=== PATIENT | male | born 1985 | race Caucasian/White ===

== ENCOUNTER 2019-03-01 15:34 | Emergency (ER) | payer OTHER ==
[~2019-03-01] VITALS: Ht 165.1 cm; Wt 104.3 kg
[2019-03-01 15:37] VITALS: BP 120/95
--- NOTE | 2019-03-01 15:44 | NUR ---
PT AMB TO BED 4.
--- NOTE | 2019-03-01 15:50 | NUR ---
33M C/O CONTINUOUS, "SMOTHERING" MID CHEST PAIN NON RADIATING , NAUSEA X 15-20 MINS. STARTED WHILE PATIENT WAS AT [employer], NOT DOING ANYTHING STRENUOUS. PAIN 2/10. DENIES TRAUMA. CP ASSOCIATED WITH DIZZINESS, SOB, DIAPHORESIS, NAUSEA. DENIES VOMITING. TOOK MIDOL TO NO RELIEF. MED HX: GERD RX: OMEPRAZOLE, SPIRONOLACTONE, ESTRADIOL
--- NOTE | 2019-03-01 15:54 | NUR ---
DR LIVINGSTON AT BEDSIDE
[2019-03-01] MEDS ORDERED: KETOROLAC 30 MG/ML VIAL IVP ONE (15:55)
[2019-03-01] MEDS ORDERED: ONDANSETRON 4 MG/2 ML VIAL IVP ONE (15:55)
[2019-03-01] MEDS ORDERED: NACL 0.9% 1,000 ML IV ONE (15:55)
--- NOTE | 2019-03-01 16:00 | NUR ---
neurophysiological technician at bedside for blood draw.
[2019-03-01 16:27] LABS: BASOPHILS % (AUTO) 0.3 % (0.0-2.0); EOSINOPHILS # (AUTO) 0.2 K/uL (0-0.4); EOSINOPHILS % (AUTO) 1.8 % (0.0-4.0); HEMATOCRIT 40.7 % (36-52); HEMOGLOBIN 13.9 g/dL (12.0-18.0); LYMPHOCYTES # (AUTO) 3.7 K/uL (2.0-11.5); LYMPHOCYTES % (AUTO) 29.1 % (20.5-51.1); MEAN CORPUSCULAR HEMOGLOBIN 30 pg (27-31); MEAN CORPUSCULAR HGB CONC 34 g/dL (33-37); MEAN CORPUSCULAR VOLUME 87.3 fL (80-94); MONOCYTES # (AUTO) 0.9 K/uL (0.8-1.0); MONOCYTES % (AUTO) 6.9 % (1.7-9.3); NEUTROPHILS % (AUTO) 61.9 % (42.2-75.2); PLATELET COUNT (AUTO) 355 K/uL (140-450); RED BLOOD CELL COUNT(AUTO) 4.66 MIL/uL (4.20-6.10); RED CELL DISTRIBUTION WIDTH 12.6 % (11.6-13.7); WHITE BLOOD COUNT (AUTO) 12.9 K/uL (4.8-10.8)
[2019-03-01 16:35] LABS: ANION GAP 11.6 (8-16); CARBON DIOXIDE 27.3 mmol/L (21-32); CREATININE 0.9 mg/dL (0.7-1.3); POTASSIUM 3.9 mmol/L (3.5-5.1)
--- NOTE | 2019-03-01 16:44 | NUR ---
Patient denies nausea at this time. States pain is "a lot less", rated "1 or 2 out of 10" at this time.
[2019-03-01 16:50] LABS: ALBUMIN 3.7 g/dL (3.4-5.0); FREE T4 (FREE THYROXINE) 0.89 ng/dL (0.76-1.46); THYROID STIMULATING HORMONE 1.78 uIU/mL (0.34-3.74); TOTAL BILIRUBIN 0.2 mg/dL (0.0-1.0)
[2019-03-01 16:55] LABS: APPEARANCE,URINE CLEAR (CLEAR); BILIRUBIN,URINE NEGATIVE (NEGATIVE); BLOOD, URINE 1+ (NEGATIVE); COLOR,URINE YELLOW (YELLOW); LEUKOCYTE ESTERASE ,URINE NEGATIVE (NEGATIVE); NITRITE, URINE NEGATIVE (NEGATIVE); UGLUCOSE NEGATIVE (NEGATIVE)
[2019-03-01 17:13] LABS: RBC,URINE 0-5 /HPF (0-5); WBC,URINE 0 /HPF (0-5)
--- NOTE | 2019-03-01 17:33 | NUR ---
Patient discharged with v/s stable. Written and verbal after care instructions given and explained. Patient verbalized understanding. Ambulatory with steady gait. All questions addressed prior to discharge. Advised to follow up with PMD.
[2019-03-01 17:34] VITALS: BP 120/58
== END 2019-03-01 17:33 | disposition home or self-care (01) ==
LOC: MED 15:34
DX: F41.9 Anxiety disorder, unspecified (principal); R42 Dizziness and giddiness
CPT/HCPCS: 36415; 71045; 80053; 81001; 84439; 84443; 85025; 96361; 96374; 96375; 99284; J1885; J2405; J7030; Q0092

== ENCOUNTER 2019-12-03 07:22 | Emergency (ER) | payer OTHER, SELFPAY ==
[~2019-12-03] VITALS: Ht 177.8 cm; Wt 99.8 kg
[2019-12-03 07:25] VITALS: BP 147/99
[2019-12-03 08:39] VITALS: BP 131/78
== END 2019-12-03 08:39 | disposition home or self-care (01) ==
LOC: MED 07:22 → EEVIPCON 07:22 → MED 08:39
DX: R07.9 Chest pain, unspecified (principal); R09.81 Nasal congestion; R03.0 Elevated blood-pressure reading, without diagnosis of hypertension; K21.9 Gastro-esophageal reflux disease without esophagitis
CPT/HCPCS: 71045; 93005; 99283; Q0092; 99284

== ENCOUNTER 2020-06-06 00:24 | Emergency (ER) | payer OTHER, SELFPAY ==
[~2020-06-06] VITALS: Ht 165.1 cm; Wt 118.4 kg
[2020-06-06 00:28] VITALS: BP 115/97
[2020-06-06] MEDS ORDERED: ACETAMINOPHEN EXTRA STRENGTH 500 MG TAB PO ONE (01:05)
--- NOTE | 2020-06-06 01:20 | NUR ---
PT TAKEN TO XRAY VIA W/C.
--- NOTE | 2020-06-06 01:30 | NUR ---
PT TAKEN TO BED 7
--- NOTE | 2020-06-06 01:35 | NUR ---
PT 34 Y/O MALE BIBA FOR C/O PERERA S/P HITTING HEAD ON WALL X 1 HOUR AGO. PT STATES,"I GOT FRUSTRATED AFTER PLAYING A VIDEO GAME AND I BANGED MY HEAD ON THE WALL." PT DENIES LOC, DENIES DIZZYNESS OR BLURRED VISION. BRUISE NOTED ON FRONTAL LOBE. PT NO CUT OR DRAINAGE NOTED/ PERRLA 3MM BRISK, BILAT. PT DENIES N/V. VSS. BED LOCKED AND IN LOWEST POSITION. MEDHX: CARO GUARDADO
[2020-06-06 02:00] VITALS: BP 122/88
--- NOTE | 2020-06-06 02:00 | NUR ---
Patient discharged with v/s stable. Written and verbal after care instructions given and explained. Patient alert, oriented and verbalized understanding of instructions. Ambulatory with steady gait. All questions addressed prior to discharge. ID band removed. Patient advised to follow up with PMD. Rx of ACETOMINOPHEN given. Patient educated on indication of medication including possible reaction and side effects. Opportunity to ask questions provided and answered.
== END 2020-06-06 02:00 | disposition home or self-care (01) ==
LOC: MED 00:24
DX: S00.83XA Contusion of other part of head, initial encounter (principal); S60.221A Contusion of right hand, initial encounter; K21.9 Gastro-esophageal reflux disease without esophagitis; W22.8XXA Striking against or struck by other objects, initial encounter; Y93.89 Activity, other specified; Y92.89 Other specified places as the place of occurrence of the external cause; Y99.8 Other external cause status
CPT/HCPCS: 73130; 99283

== ENCOUNTER 2020-09-30 18:16 | Emergency (ER) | payer OTHER, SELFPAY ==
[~2020-09-30] VITALS: Ht 165.1 cm; Wt 108.9 kg
[2020-09-30 18:22] VITALS: BP 110/72
--- NOTE | 2020-09-30 18:25 | NUR ---
Pt ambulated to ER bed 10 with a steady gait.
--- NOTE | 2020-09-30 18:30 | NUR ---
35 Y/O MALE C/O MID CHEST PAIN X 2 HOURS RADIATING TO EPIGASTRIC DESCRIBES TIGHTNESS INTERMITTENT. PT DENIES N/V, DENIES FEVER/CHILLS. PMH: GERD, FATTY LIVER RX: OMEPRAZOLE 20MG PO DAILY NKA
--- NOTE | 2020-09-30 19:02 | NUR ---
Dr. Card at pt bedside for further evaluation.
[2020-09-30] MEDS ORDERED: KETOROLAC 60 MG/2 ML VIAL IM ONE (19:05)
[2020-09-30] MEDS ORDERED: ACET-8386 PO (19:22)
[2020-09-30] MEDS ORDERED: IBUP-2213 PO (19:22)
--- NOTE | 2020-09-30 19:23 | NUR ---
Gave report to TAHMINA Larsen, transfer of care at this time.
--- NOTE | 2020-09-30 19:24 | NUR ---
RECEIVED REPORT FROM UMAIR MARTEL FOR CONTINUITY OF CARE.
--- NOTE | 2020-09-30 20:40 | NUR ---
PT RESTING IN BED IN NO ACUTE DISTRESS NOTED BREATHING EVEN AND UNLABORED. NO C/O PAIN OR DISCOMFORT AT THIS TIME.
[2020-09-30 21:05] VITALS: BP 110/72
--- NOTE | 2020-09-30 21:28 | NUR ---
Patient discharged with v/s stable. Written and verbal after care instructions given and explained BY JADE ACUÑA. Patient alert, oriented and verbalized understanding of instructions. Ambulatory with steady gait. All questions addressed prior to discharge BY JADE ACUÑA. ID band removed. Patient advised to follow up with PMD. Rx of NORCO given. Patient educated on indication of medication including possible reaction and side effects. Opportunity to ask questions provided and answered.
== END 2020-09-30 21:28 | disposition home or self-care (01) ==
LOC: MED 18:16
DX: R07.9 Chest pain, unspecified (principal); R05 Cough; R06.02 Shortness of breath; K21.9 Gastro-esophageal reflux disease without esophagitis
CPT/HCPCS: 93005; 96372; 99283; J1885

== ENCOUNTER 2022-08-18 16:58 | Emergency (ER) | payer OTHER ==
[~2022-08-18] VITALS: Ht 165.1 cm; Wt 113.9 kg
[~2022-08-18 16:58] MED LIST: ACET-8905 PO; IBUP-2213 PO
[2022-08-18 17:10] VITALS: BP 149/90
[2022-08-18] MEDS ORDERED: MECLIZINE 25 MG TAB PO ONE (19:30)
--- NOTE | 2022-08-18 19:35 | NUR ---
37/M C/O DIZZINESS X4 DAYS, ALSO C/O EPISODES OF SOB. DENIES HEADACHE OR VISION CHANGES, NUMBNESS, TINGLING. PMH: DENIES NKDA
--- NOTE | 2022-08-18 19:35 | NUR ---
PT TO BED 12
[2022-08-18 20:17] LABS: BASOPHILS # (AUTO) 0.1 K/uL (0.00-0.22); BASOPHILS % (AUTO) 0.4 % (0.0-2.0); EOSINOPHILS # (AUTO) 0.1 K/uL (0-0.4); HEMATOCRIT 41.7 % (36-52); HEMOGLOBIN 14.4 g/dL (12.0-18.0); LYMPHOCYTES # (AUTO) 3.7 K/uL (2.0-11.5); LYMPHOCYTES % (AUTO) 24.2 % (20.5-51.1); MEAN CORPUSCULAR HEMOGLOBIN 30 pg (27-31); MEAN CORPUSCULAR HGB CONC 34 g/dL (33-37); MEAN CORPUSCULAR VOLUME 85.9 fL (80-94); MONOCYTES # (AUTO) 0.8 K/uL (0.8-1.0); MONOCYTES % (AUTO) 5.5 % (1.7-9.3); NEUTROPHILS # (AUTO) 10.6 K/uL (1.8-7.7); NEUTROPHILS % (AUTO) 68.9 % (42.2-75.2); PLATELET COUNT (AUTO) 402 K/uL (140-450); RED BLOOD CELL COUNT(AUTO) 4.85 MIL/uL (4.20-6.10); RED CELL DISTRIBUTION WIDTH 12.7 % (11.6-13.7); WHITE BLOOD COUNT (AUTO) 15.3 K/uL (4.8-10.8)
[2022-08-18 20:35] LABS: ALBUMIN 4.1 g/dL (3.4-5.0); ANION GAP 12.8 (8-16); ASPARTATE AMINOTRANSFERASE 24 U/L (15-37); CARBON DIOXIDE 25.7 mmol/L (21-32); CHLORIDE 102 mmol/L (98-107); CREATININE 0.9 mg/dL (0.6-1.3); GFR ARICAN-AMERICAN 123 mL/min (>90); GLUCOSE 96 mg/dL (74-106); POTASSIUM 3.5 mmol/L (3.5-5.1); SODIUM SERUM 137 mmol/L (136-145); TOTAL BILIRUBIN 0.4 mg/dL (0.0-1.0); UREA NITROGEN, BLOOD 15 mg/dL (7-18)
--- NOTE | 2022-08-18 21:15 | NUR ---
TO CT VIA W/C
--- NOTE | 2022-08-18 22:12 | NUR ---
KAMI SWAB OBTAINED AND SENT TO LAB
--- NOTE | 2022-08-18 22:50 | NUR ---
BELONGINGS LIST COMPLETED
[2022-08-18] MEDS ORDERED: ASPIRIN 325 MG TAB PO ONE (23:05)
--- NOTE | 2022-08-19 03:20 | NUR ---
CALLED [facility] AND REPORT GIVEN TO TAHMINA KELLEY.
--- NOTE | 2022-08-19 03:25 | NUR ---
[facility] AT BEDSIDE FOR TRANSPORT
--- NOTE | 2022-08-19 03:30 | NUR ---
Patient to be transferred to [facility]. Is being transferred due to INSURANCE REQUEST. Receiving facility has accepting physician and available space. ER physician has signed transfer form. Patient or responsible green party has agreed to transfer and signed form. Patient belongings inventoried and will be sent with patient. Copy of nursing notes, lab reports, EKG, Physicians Orders and X-rays to be sent with patient. Report called to TAHMINA KELLEY at receiving facility.
[2022-08-19 03:31] VITALS: BP 128/82
== END 2022-08-19 03:33 | disposition short-term general hospital (02) ==
LOC: MED 16:58
DX: R42 Dizziness and giddiness (principal); Z20.822 Contact with and (suspected) exposure to COVID-19; R06.02 Shortness of breath; K21.9 Gastro-esophageal reflux disease without esophagitis; Z98.890 Other specified postprocedural states
CPT/HCPCS: 36415; 70450; 71275; 80053; 84484; 85025; 87426; 99285; J8597; Q9967